=== PATIENT | female | born 1955 | race Caucasian/White ===

== ENCOUNTER 2020-02-04 14:05 | Emergency (ER) | payer BC, SELFPAY ==
[2020-02-04 14:16] VITALS: BP 153/99; PULSE 77; RESP 16; TEMP 36.6; O2SAT 97
[2020-02-04] MEDS: diphenhydrAMINE 25 MG CAP 50 MG PO (15:05)
--- NOTE | 2020-02-06 00:54 | ED.GENADUL_ITS ---
Discharge Plan Disposition Patient Disposition: HOME Condition: Stable Discharge Details Chief Complaint: RashLesion Clinical Impression: Rash Primary Care Provider: Unknown,Unknown ED Provider: Justine Yi Home Meds and New Rx's Prescriptions: New doxycycline hyclate 100 mg tablet 100 mg PO BID Qty: 20 RF: 0 Continued levothyroxine [Synthroid] 75 mcg Tablet 75 mcg PO DAILY RF: 0 cholecalciferol (vitamin D3) [Vitamin D3] 25 mcg (1,000 unit) Tablet 25 mcg PO DAILY RF: 0 Discharge Instructions Instructions: Doxycycline (By mouth), Cellulitis (ED), Insect Bite or Sting (ED) Additional Instructions: Please return immediately to the emergency department if you develop any new or worsening symptoms, if your condition does not improve as expected, or if you become otherwise concerned. It is extremely important that you call soon as possible to make an appointment to be seen in follow-up for this visit by your primary care doctor. Discharge Data Discharge Date/Time-TO BE ENTERED AT DEPARTURE: 02/04/20 15:13 Medical Decision Making Anais Ireland is a 64 y/o woman with h/o thyroid dz who presented to the emergency department with rash to arm and leg following insect bites. On exam Pt is well and non-toxic appearing. Mildly tender erythema to arm and leg. Exam/hx not c/w anaphylaxis, impending airway compromise, sepsis, necrotizing fasciitis, septic arthritis. Concern for local inflammatory reaction vs cellulitis, plan to treat with doxy. I had a lengthy discussion with Patient regarding return to emergency department precautions, home care, and importance of outpatient follow-up. Pt verbalizes understanding of the plan and is amenable. Patient discharged to home with clear plan for outpatient follow-up. All questions were answered. Disposition decision was made weighing the risks and benefits of hospitalization versus outpatient treatment, the risk for further decompensation, and the patient's wishes. Medical Records Medical records reviewed: Yes I reviewed the patient's medical records. HPI General Mode of arrival: ambulatory . Date/Time Provider Initiated Documentation: 02/04/20 14:30 . Limitations to Documentation: no limitations . Information obtained by: patient, RN notes reviewed and old records reviewed . HPI Narrative: Anais rIeland is a 64 y/o woman with h/o thyroid dz presenting to the emergency department with insect bites. Pt reports that she was bitten by an insect 3 days ago, right posterior upper arm and left anterior lower leg. Pt reports that since bites she had progressive redness and pain in areas around bites. Minimal itching. Pt reports that she has not had similar symptoms to insect bites in the past. Denies fever, any other pain, vomiting, diarrhea, numbness, weakness, other rash. Feels overall well and in her usual state of health. Has been eating and drinking as usual. Related Data Home Medications Medication Instructions Recorded Confirmed cholecalciferol (vitamin D3) 25 mcg PO DAILY 02/04/20 02/04/20 [Vitamin D3] doxycycline hyclate 100 mg PO BID #20 tab 02/04/20 levothyroxine [Synthroid] 75 mcg PO DAILY 02/04/20 02/04/20 Previous Rx's Medication Instructions Recorded doxycycline hyclate 100 mg PO BID #20 tab 02/04/20 Allergies Allergy/AdvReac Type Severity Reaction Status Date / Time No Known Allergies Allergy Unverified 02/04/20 14:21 General Stated Complaint: RashLesion ALMA: 4 Review of Systems Narrative: Constitutional: denies fevers Eyes: denies eye pain ENT: denies ear pain, dental pain, sore throat Cardiovascular: denies chest pain Respiratory: denies SOB, cough GI: denies abdominal pain, vomiting, diarrhea : denies flank pain MSK: denies back pain, neck pain, arthralgias, myalgias Skin: reports mildly painful area of redness surrounding initial insect bites to right upper arm and left lower leg Neuro: denies headaches, numbness, weakness PFSH Social History Smoking/Tobacco Use Status: Never Alcohol Intake: current Alcohol Intake frequency: holidays/special occasions only Drug use: Never Do you feel safe at home: Yes Do you feel safe in your relationship?: Yes Exam Narrative Exam Narrative: Constitutional: well and [id number], pleasant, conversing normally HENT: head atraumatic/normocephalic/normal inspection, mucous membranes moist Eyes: conjunctiva normal, sclera normal, pupils 3mm b/l Neck: no stridor, normal ROM, trachea midline Resp: normal work of breathing Cardio: normal rate, normal rhythm Skin: warm, dry, normal color, no rash Neuro: alert, not altered, grossly non-focal, normal tone Ext: no edema. right posterior upper arm with 10cm area of erythema, mild TTP, no fluctuance or mass, full painless ROM right shoulder and elbow. Left anterior lower leg with 10cm of erythema, TTP, no fluctuance or mass. Full painless ROM left ankle and knee Psych: normal mood, normal affect, normal behavior Course Vital Signs Vital signs: Vital Signs Temperature 36.6 C 02/04/20 14:16 Pulse 77 02/04/20 14:16 Respiratory Rate 16 02/04/20 14:16 Blood Pressure 153/99 H 02/04/20 14:16 Pulse Oximetry 97 02/04/20 14:16 Temperature 36.6 C 02/04/20 14:16 Temperature Source Temporal Artery Scan 02/04/20 14:16 Pulse 77 02/04/20 14:16 Respiratory Rate 16 02/04/20 14:16 Respiratory Effort Non-Labored 02/04/20 14:20 Blood Pressure 153/99 H 02/04/20 14:16 Blood Pressure Position Sitting 02/04/20 14:16 Pulse Oximetry 97 02/04/20 14:16 Oxygen Delivery Method Room Air 02/04/20 14:16 Oxygen Flow Rate 0 02/04/20 14:16 Pain Level 0 02/04/20 15:08
== END 2020-02-04 15:13 | disposition home or self-care (01) ==
PROVIDERS: Emergency Provider Student in an Organized Health Care Education/Training Program
DX: S40.861A Insect bite (nonvenomous) of right upper arm, initial encounter (principal); S80.862A Insect bite (nonvenomous), left lower leg, initial encounter; W57.XXXA Bitten or stung by nonvenomous insect and other nonvenomous arthropods, initial encounter
CPT/HCPCS: 99283